=== PATIENT | male | born 1965 | race Asian ===

== ENCOUNTER 2016-10-01 10:38 | Inpatient (IN) | payer MEDICAID, OTHER ==
[~2016-10-01] VITALS: Ht 162.6 cm; Wt 80.5 kg
[2016-10-01] MEDS ORDERED: SERT50TA12 PO (11:27)
[2016-10-01] MEDS ORDERED: LORazepam 2 MG TABLET PO ONE (12:45)
[2016-10-01] MEDS ORDERED: KETOROLAC TROMETHAMINE 60 MG/2 ML VIAL IM ONE (12:45)
[2016-10-01 13:13] LABS: ANION GAP 11 mmol/L (8-16); CARBON DIOXIDE 20 mmol/L (22-29); CHLORIDE 103 mmol/L (98-107); CREATININE 1.38 mg/dL (0.60-1.30); GLOMERULAR FILTR. RATE CALC 54 mL/min (>60); POTASSIUM 4.6 mmol/L (3.5-5.1); SODIUM SERUM 134 mmol/L (136-145); UREA NITROGEN, BLOOD 20 mg/dL (7-18)
[2016-10-01 13:36] LABS: ALANINE AMINOTRANSFERASE 38 U/L (12-78); ALBUMIN 2.9 g/dL (3.4-5.0); ASPARTATE AMINOTRANSFERASE 38 U/L (15-37); BILIRUBIN,TOTAL 4.3 mg/dL (0.1-1.0)
[2016-10-01 13:39] LABS: CREATINE KINASE MB 0.7 ng/mL (0-5); CREATINE KINASE, TOTAL 123 U/L (39-308)
[2016-10-01] MEDS ORDERED: ZOLPIDEM TARTRATE 10 MG TABLET PO PRN (14:45)
[2016-10-01] MEDS ORDERED: LORazepam 2 MG TABLET PO PRN (14:45)
[2016-10-01] MEDS ORDERED: HALOPERIDOL 5 MG TABLET PO PRN (14:45)
[2016-10-01 14:49] LABS: BASOPHILS # (AUTO) 0.02 K/uL (0.00-0.20); BASOPHILS % (AUTO) 0.9 % (0.0-2.0); EOSINOPHILS # (AUTO) 0.07 K/uL (0.00-0.70); EOSINOPHILS % (AUTO) 3.05 % (1.0-6.0); HEMATOCRIT 29.6 % (41-53); HEMOGLOBIN 10.2 g/dL (13.5-17.5); LYMPHOCYTES # (AUTO) 0.7 K/uL (1.0-4.8); LYMPHOCYTES % (AUTO) 29.6 % (22.0-44.0); MEAN CORPUSCULAR HGB CONC 34.4 G/dL (31.0-37.0); MEAN CORPUSCULAR VOLUME 93 fL (80-100); MONOCYTES # (AUTO) 0.2 K/uL (0.1-1.0); NEUTROPHILS # (AUTO) 1.4 K/uL (1.8-7.7); NEUTROPHILS % (AUTO) 58.5 % (40.0-70.0); RED BLOOD CELL COUNT(AUTO) 3.18 MIL/uL (4.50-5.90); WHITE BLOOD COUNT (AUTO) 2.3 K/uL (4.5-11.0)
[2016-10-01 15:18] LABS: PLATELET COUNT (AUTO) 20 K/uL (150-450)
[2016-10-01 17:30] VITALS: BP 125/72
[2016-10-01] MEDS ORDERED: MAG HYDROX/AL HYDROX/SIMETH ES 30 ML SUSPENSION UDCUP PO PRN (18:15)
[2016-10-01] MEDS ORDERED: PNEUMOCOCCAL VACCINE POLYVALENT 0.5 ML VIAL [PPSV23] IM ONE (18:45)
[2016-10-01] MEDS ORDERED: GLUCAGON,HUMAN RECOMBINANT 1 MG VIAL IM PRN ×2 (20:45→22:15)
[2016-10-01] MEDS ORDERED: INSULIN ASPART 100 UNITS/ML SQ PRN ×2 (20:45→22:15)
[2016-10-01 20:52] LABS: GLUCOSE,POINT OF CARE 387 MG/DL (70-110)
[2016-10-01] MEDS ORDERED: INSULIN REGULAR, HUMAN 100 UNITS/ML SQ PRN (22:00)
[2016-10-01 22:02] LABS: GLUCOSE,POINT OF CARE 404 MG/DL (70-110)
[2016-10-01] MEDS: INSULIN ASPART 100 UNITS/ML SQ PRN (22:35)
[2016-10-01 23:17] LABS: GLUCOSE,POINT OF CARE 298 MG/DL (70-110)
[2016-10-01] MEDS: INSULIN DETEMIR 100 UNITS/ML SQ SCH (23:25)
[2016-10-02] VITALS (8 sets, daily range): BP systolic 112–139; BP diastolic 69–91
[2016-10-02 06:16] LABS: GLUCOSE,POINT OF CARE 133 MG/DL (70-110)
[2016-10-02 08:37] LABS: CHOL/HDL RATIO 2.5 (4.2-7.3); MAGNESIUM 1.5 mg/dL (1.80-2.40)
[2016-10-02] MEDS: NICOTINE 21 MG/24 HOUR PATCH TD SCH (08:48)
[2016-10-02] MEDS ORDERED: ACETAMINOPHEN 325 MG TABLET PO PRN (09:30)
[2016-10-02] MEDS ORDERED: IBUPROFEN 600 MG TABLET PO PRN (09:30)
[2016-10-02 11:32] LABS: GLUCOSE,POINT OF CARE 139 MG/DL (70-110)
[2016-10-02] MEDS: PANTOPRAZOLE SODIUM 40 MG DR TABLET PO SCH (12:48)
[2016-10-02] MEDS ORDERED: CYANOCOBALAMIN 1,000 MCG/ML VIAL IM ONE (15:45)
[2016-10-02] MEDS ORDERED: GuaiFENesin/D-METHORPHAN [SUGAR-FREE] 200-20MG/10 ML SYRUP UDCUP PO PRN (15:45)
[2016-10-02] MEDS ORDERED: LOPERAMIDE HCL 2 MG CAPSULE PO PRN (15:45)
[2016-10-02] MEDS ORDERED: HydrOXYzine PAMOATE 50 MG CAPSULE PO PRN (15:45)
[2016-10-02] MEDS: FOLIC ACID 1 MG TABLET PO SCH (16:03)
[2016-10-02] MEDS: THIAMINE HCL 100 MG TABLET PO SCH (16:03)
[2016-10-02] MEDS: MULTIVITAMINS WITH MINERALS, THERAPEUTIC TABLET PO SCH (16:03)
[2016-10-02 16:56] LABS: GLUCOSE,POINT OF CARE 277 MG/DL (70-110)
[2016-10-02] MEDS: INSULIN ASPART 100 UNITS/ML SQ PRN ×2 (17:03→20:45)
[2016-10-02] MEDS: OLANZapine 5 MG TABLET PO SCH (20:33)
[2016-10-02] MEDS: INSULIN DETEMIR 100 UNITS/ML SQ SCH (20:45)
[2016-10-02 20:57] LABS: GLUCOSE,POINT OF CARE 368 MG/DL (70-110)
[2016-10-03] VITALS (7 sets, daily range): BP systolic 110–122; BP diastolic 66–73
[2016-10-03] MEDS: INSULIN ASPART 100 UNITS/ML SQ PRN ×3 (06:43→16:37)
[2016-10-03 06:52] LABS: GLUCOSE,POINT OF CARE 362 MG/DL (70-110)
[2016-10-03] MEDS ORDERED: LORazepam 2 MG TABLET PO PRN (07:00)
[2016-10-03] MEDS: MAGNESIUM OXIDE 400 MG TABLET PO SCH (09:09)
[2016-10-03] MEDS: MULTIVITAMINS WITH MINERALS, THERAPEUTIC TABLET PO SCH (09:09)
[2016-10-03] MEDS: NICOTINE 21 MG/24 HOUR PATCH TD SCH (09:09)
[2016-10-03] MEDS: FOLIC ACID 1 MG TABLET PO SCH (09:09)
[2016-10-03] MEDS: LORazepam 2 MG TABLET PO SCH ×4 (09:10→20:23)
[2016-10-03] MEDS: PANTOPRAZOLE SODIUM 40 MG DR TABLET PO SCH (09:10)
[2016-10-03] MEDS: CHOLECALCIFEROL (VIT D3) 2,000 UNITS TABLET PO SCH (09:10)
[2016-10-03] MEDS: SERTRALINE HCL 50 MG TABLET PO SCH (09:10)
[2016-10-03] MEDS: THIAMINE HCL 100 MG TABLET PO SCH ×2 (09:10→16:18)
[2016-10-03 11:21] LABS: GLUCOSE,POINT OF CARE 313 MG/DL (70-110)
[2016-10-03 16:40] LABS: GLUCOSE COMMENT 1 Received Meds; GLUCOSE,POINT OF CARE 388 MG/DL (70-110)
[2016-10-03 20:21] LABS: GLUCOSE,POINT OF CARE 467 MG/DL (70-110)
[2016-10-03] MEDS: OLANZapine 5 MG TABLET PO SCH (20:23)
[2016-10-03] MEDS ORDERED: INSULIN ASPART 100 UNITS/ML SQ ONE (20:30)
[2016-10-03] MEDS ORDERED: INSULIN DETEMIR 100 UNITS/ML SQ SCH (21:00)
[2016-10-04 04:09] VITALS: BP 122/73
[2016-10-04 06:02] LABS: GLUCOSE,POINT OF CARE 264 MG/DL (70-110)
[2016-10-04 06:09] VITALS: BP 101/66
[2016-10-04] MEDS: INSULIN ASPART 100 UNITS/ML SQ PRN ×4 (07:00→20:59)
[2016-10-04] MEDS: LORazepam 2 MG TABLET PO SCH ×4 (09:00→21:00)
[2016-10-04 09:08] VITALS: BP 117/65
[2016-10-04] MEDS: NICOTINE 21 MG/24 HOUR PATCH TD SCH (09:20)
[2016-10-04] MEDS: PANTOPRAZOLE SODIUM 40 MG DR TABLET PO SCH (09:21)
[2016-10-04] MEDS: THIAMINE HCL 100 MG TABLET PO SCH ×2 (09:21→16:51)
[2016-10-04] MEDS: FOLIC ACID 1 MG TABLET PO SCH (09:21)
[2016-10-04] MEDS: CHOLECALCIFEROL (VIT D3) 2,000 UNITS TABLET PO SCH (09:21)
[2016-10-04] MEDS: SERTRALINE HCL 50 MG TABLET PO SCH (09:21)
[2016-10-04] MEDS: MULTIVITAMINS WITH MINERALS, THERAPEUTIC TABLET PO SCH (09:21)
[2016-10-04] MEDS: MAGNESIUM OXIDE 400 MG TABLET PO SCH (09:21)
[2016-10-04 11:17] LABS: GLUCOSE,POINT OF CARE 289 MG/DL (70-110)
[2016-10-04 13:06] LABS: HEPATITIS Bs ANTIGEN SCREEN P Negative (Negative); HEPATITIS C AB SCREEN >11.0 s/co ratio (0.0-0.9)
[2016-10-04 17:12] LABS: GLUCOSE,POINT OF CARE 389 MG/DL (70-110)
[2016-10-04 17:31] VITALS: BP 125/75
[2016-10-04 17:32] VITALS: BP 125/75
[2016-10-04] MEDS: OLANZapine 5 MG TABLET PO SCH (21:00)
[2016-10-04] MEDS ORDERED: INSULIN DETEMIR 100 UNITS/ML SQ SCH (21:00)
[2016-10-04 21:17] LABS: GLUCOSE,POINT OF CARE 360 MG/DL (70-110)
[2016-10-05 01:15] VITALS: BP 142/66
[2016-10-05 01:30] VITALS: BP 127/73
[2016-10-05 01:45] VITALS: BP 125/72
[2016-10-05 02:00] VITALS: BP 142/66
[2016-10-05 02:15] VITALS: BP 142/78
[2016-10-05 02:45] VITALS: BP 120/74
[2016-10-05 03:27] LABS: GLUCOSE,POINT OF CARE 237 MG/DL (70-110)
[2016-10-05] MEDS ORDERED: LORA1TAB3 PO (04:47)
[2016-10-05] MEDS ORDERED: SERT50TA12 PO (04:47)
[2016-10-05] MEDS ORDERED: PANT40TA25 PO (04:47)
[2016-10-05] MEDS ORDERED: INSU100V12 SD (04:47)
[2016-10-05] MEDS ORDERED: MAGOX PO (04:47)
[2016-10-05] MEDS ORDERED: CHOL200016 PO (04:47)
[2016-10-05] MEDS ORDERED: OLAN5TAB2 PO (04:47)
[2016-10-05] MEDS ORDERED: LORazepam 1 MG TABLET PO PRN (07:00)
[2016-10-05] MEDS ORDERED: LORazepam 1 MG TABLET PO SCH (09:00)
[2016-10-06] MEDS ORDERED: LORazepam 1 MG TABLET PO PRN (07:00)
== END 2016-10-05 15:15 | disposition short-term general hospital (02) | DRG 750 ==
LOC: EEVIPCON 10:41 → EMS 10:41 → B2S 15:03
PROC: HZ2ZZZZ Detoxification Services for Substance Abuse Treatment (ICD-10-PCS; principal; 2016-10-02)
DX: F25.1 Schizoaffective disorder, depressive type (principal); G20 Parkinson's disease; R45.851 Suicidal ideations; E11.65 Type 2 diabetes mellitus with hyperglycemia; K74.60 Unspecified cirrhosis of liver; E55.9 Vitamin D deficiency, unspecified; E83.42 Hypomagnesemia; D64.9 Anemia, unspecified; B19.20 Unspecified viral hepatitis C without hepatic coma; F10.10 Alcohol abuse, uncomplicated; R26.9 Unspecified abnormalities of gait and mobility; Y90.0 Blood alcohol level of less than 20 mg/100 ml
CPT/HCPCS: 80074; 82306; 82607; 82746; 82962; 83036; 83735; 84439; 84443; 90471; 96372; 99285; G0480; J1815; J1885; J3420

== ENCOUNTER 2016-10-05 04:04 | Inpatient (IN) | payer MEDICAID, OTHER ==
[~2016-10-05] VITALS: Ht 162.6 cm; Wt 76.1 kg
[~2016-10-05 04:04] MED LIST: SERT50TA12 PO
[2016-10-05] MEDS ORDERED: MAGOX PO (04:47)
[2016-10-05] MEDS ORDERED: CHOL200016 PO (04:47)
[2016-10-05] MEDS ORDERED: PANT40TA25 PO (04:47)
[2016-10-05] MEDS ORDERED: SERT50TA12 PO (04:47)
[2016-10-05] MEDS ORDERED: INSU100V12 SD (04:47)
[2016-10-05] MEDS ORDERED: LORA1TAB3 PO (04:47)
[2016-10-05] MEDS ORDERED: OLAN5TAB2 PO (04:47)
[2016-10-05 05:26] LABS: BASOPHILS % (AUTO) 0.2 % (0.0-2.0); EOSINOPHILS % (AUTO) 2.7 % (1.0-6.0); HEMATOCRIT 31.1 % (41-53); HEMOGLOBIN 10.4 g/dL (13.5-17.5); LYMPHOCYTES # (AUTO) 0.7 K/uL (1.0-4.8); LYMPHOCYTES % (AUTO) 20.1 % (22.0-44.0); MEAN CORPUSCULAR HEMOGLOBIN 31.8 pg (26.0-34.0); MEAN CORPUSCULAR HGB CONC 33.5 G/dL (31.0-37.0); MEAN CORPUSCULAR VOLUME 95 fL (80-100); MONOCYTES # (AUTO) 0.2 K/uL (0.1-1.0); MONOCYTES % (AUTO) 4.8 % (2.0-9.0); NEUTROPHILS # (AUTO) 2.4 K/uL (1.8-7.7); NEUTROPHILS % (AUTO) 72.2 % (40.0-70.0); PLATELET COUNT (AUTO) 20 K/uL (150-450); RED BLOOD CELL COUNT(AUTO) 3.28 MIL/uL (4.50-5.90); RED CELL DISTRIBUTION WIDTH 14.3 % (11.5-14.5); WHITE BLOOD COUNT (AUTO) 3.3 K/uL (4.5-11.0)
[2016-10-05 05:32] LABS: ANION GAP 8 mmol/L (8-16); CALCIUM, TOTAL 8.3 mg/dL (8.8-10.5); CARBON DIOXIDE 26 mmol/L (22-29); CHLORIDE 110 mmol/L (98-107); CREATININE 1.39 mg/dL (0.60-1.30); GLOMERULAR FILTR. RATE CALC 54 mL/min (>60); POTASSIUM 4.1 mmol/L (3.5-5.1); SODIUM SERUM 144 mmol/L (136-145); UREA NITROGEN, BLOOD 18 mg/dL (7-18)
[2016-10-05 05:39] LABS: AMMONIA 302 umol/L (11-32)
[2016-10-05 05:42] LABS: TROPONIN I < 0.02 ng/mL (0.00-0.05)
[2016-10-05] MEDS ORDERED: MAGNESIUM SULFATE 2 GM, MVI, ADULT NO.1 WITH VIT K 10 ML, THIAMINE HCL 100 MG, FOLIC AC... IV ONE ×5 (05:45)
[2016-10-05] MEDS ORDERED: LACTULOSE 20 GM/30 ML SOLUTION UDCUP PO ONE (05:45)
[2016-10-05] MEDS ORDERED: 0.9% SODIUM CHLORIDE 10 ML SYRINGE IVP PRN (05:45)
[2016-10-05] MEDS ORDERED: ONDANSETRON HCL 4 MG/2 ML VIAL IVP PRN (05:45)
[2016-10-05 05:46] LABS: B-TYPE NATRIURETIC PEPTIDE 27 pg/mL (0-100)
[2016-10-05 05:57] LABS: ALANINE AMINOTRANSFERASE 45 U/L (12-78); ALBUMIN 2.5 g/dL (3.4-5.0); ASPARTATE AMINOTRANSFERASE 33 U/L (15-37); BILIRUBIN,TOTAL 2.6 mg/dL (0.1-1.0); CREATINE KINASE MB 0.6 ng/mL (0-5); CREATINE KINASE, TOTAL 93 U/L (39-308); TOTAL PROTEIN, SERUM 5.7 g/dL (6.4-8.2)
[2016-10-05 09:47] LABS: CALCIUM, TOTAL 8.2 mg/dL (8.8-10.5); CREATININE 1.35 mg/dL (0.60-1.30); POTASSIUM 4.4 mmol/L (3.5-5.1)
[2016-10-05 09:53] LABS: ALBUMIN 2.6 g/dL (3.4-5.0); BILIRUBIN,TOTAL 2.7 mg/dL (0.1-1.0); TOTAL PROTEIN, SERUM 5.8 g/dL (6.4-8.2)
[2016-10-05 15:03] LABS: APPEARANCE,URINE CLEAR (CLEAR); GLUCOSE, URINE (UA) 100 mg/dL (NEGATIVE); KETONES,URINE NEGATIVE (NEGATIVE); LEUKOCYTE ESTERASE ,URINE NEGATIVE (NEGATIVE); OCCULT BLOOD,URINE MODERATE (NEGATIVE); PROTEIN,URINE NEGATIVE (NEGATIVE)
[2016-10-05 15:04] LABS: ADD UA MICROSCOPIC YES
[2016-10-05 15:07] LABS: WBC,URINE 0-2 /HPF (0-5)
[2016-10-05 15:17] LABS: GLUCOSE,POINT OF CARE 217 MG/DL (70-110)
[2016-10-05 15:26] LABS: CALCIUM, TOTAL 8.2 mg/dL (8.8-10.5); CREATININE 1.28 mg/dL (0.60-1.30)
[2016-10-05 15:31] LABS: ALBUMIN 2.7 g/dL (3.4-5.0); BILIRUBIN,TOTAL 3.1 mg/dL (0.1-1.0); TOTAL PROTEIN, SERUM 5.9 g/dL (6.4-8.2)
[2016-10-05 20:22] VITALS: BP 127/78
[2016-10-05] MEDS ORDERED: -PHARMACY VACCINE NOTE- MISC ONE ×2 (22:30)
[2016-10-05 23:26] VITALS: BP 119/69
[2016-10-06] MEDS: HYDROCODONE/ACETAMINOPHEN 5-325 MG TABLET PO PRN ×2 (02:40→15:24)
[2016-10-06 04:36] VITALS: BP 122/72
[2016-10-06 07:31] VITALS: BP 109/61
[2016-10-06 07:38] LABS: BASOPHILS % (AUTO) 0.2 % (0.0-2.0); EOSINOPHILS % (AUTO) 3.7 % (1.0-6.0); HEMATOCRIT 28.4 % (41-53); HEMOGLOBIN 9.4 g/dL (13.5-17.5); LYMPHOCYTES # (AUTO) 0.5 K/uL (1.0-4.8); LYMPHOCYTES % (AUTO) 24.4 % (22.0-44.0); MEAN CORPUSCULAR HEMOGLOBIN 31.7 pg (26.0-34.0); MEAN CORPUSCULAR HGB CONC 33.2 G/dL (31.0-37.0); MEAN CORPUSCULAR VOLUME 96 fL (80-100); MONOCYTES # (AUTO) 0.1 K/uL (0.1-1.0); NEUTROPHILS # (AUTO) 1.4 K/uL (1.8-7.7); NEUTROPHILS % (AUTO) 65.7 % (40.0-70.0); PLATELET COUNT (AUTO) 20 K/uL (150-450); RED BLOOD CELL COUNT(AUTO) 2.97 MIL/uL (4.50-5.90); RED CELL DISTRIBUTION WIDTH 14.7 % (11.5-14.5); WHITE BLOOD COUNT (AUTO) 2.1 K/uL (4.5-11.0)
[2016-10-06 07:49] LABS: CALCIUM, TOTAL 7.7 mg/dL (8.8-10.5); CREATININE 1.27 mg/dL (0.60-1.30)
[2016-10-06] MEDS: PANTOPRAZOLE SODIUM 40 MG DR TABLET PO SCH (07:59)
[2016-10-06] MEDS: LORazepam 1 MG TABLET PO SCH ×4 (07:59→20:01)
[2016-10-06] MEDS: MAGNESIUM OXIDE 400 MG TABLET PO SCH (07:59)
[2016-10-06 11:06] VITALS: BP 124/57
[2016-10-06 15:02] VITALS: BP 127/69
[2016-10-06 19:32] VITALS: BP 139/83
[2016-10-06 20:32] LABS: GLUCOSE COMMENT 1 Received Meds; GLUCOSE,POINT OF CARE 316 MG/DL (70-110)
[2016-10-06] MEDS ORDERED: INSULIN DETEMIR 100 UNITS/ML SQ SCH (21:00)
[2016-10-06] MEDS: LACTULOSE 20 GM/30 ML SOLUTION UDCUP PO SCH (22:42)
[2016-10-06 23:33] VITALS: BP 156/79
[2016-10-07] MEDS ORDERED: INSULIN REGULAR, HUMAN 100 UNITS/ML SQ PRN (00:30)
[2016-10-07] MEDS ORDERED: DEXTROSE 50%-WATER 25 GM/50 ML SYRINGE IVP PRN ×2 (00:30→00:45)
[2016-10-07 04:57] VITALS: BP 142/72
[2016-10-07] MEDS: LACTULOSE 20 GM/30 ML SOLUTION UDCUP PO SCH ×3 (05:57→17:52)
[2016-10-07] MEDS: INSULIN ASPART 100 UNITS/ML SQ PRN ×4 (06:00→20:24)
[2016-10-07] MEDS ORDERED: LORazepam 2 MG/ML VIAL IVP PRN (06:30)
[2016-10-07] MEDS ORDERED: LORazepam 2 MG/ML VIAL ONE (06:36)
[2016-10-07] MEDS: MAGNESIUM OXIDE 400 MG TABLET PO SCH (07:55)
[2016-10-07] MEDS: PANTOPRAZOLE SODIUM 40 MG DR TABLET PO SCH (07:55)
[2016-10-07] MEDS: LORazepam 1 MG TABLET PO SCH ×6 (07:55→21:00)
[2016-10-07] MEDS: HYDROCODONE/ACETAMINOPHEN 5-325 MG TABLET PO PRN (07:55)
[2016-10-07 08:03] VITALS: BP 124/70
[2016-10-07 11:04] LABS: GLUCOSE COMMENT 1 Received Meds; GLUCOSE,POINT OF CARE 250 MG/DL (70-110)
[2016-10-07 11:33] VITALS: BP 139/62
[2016-10-07 13:17] LABS: GLUCOSE COMMENT 1 Received Meds; GLUCOSE,POINT OF CARE 207 MG/DL (70-110)
[2016-10-07 15:54] VITALS: BP 143/82
[2016-10-07] MEDS ORDERED: LACTULOSE 20 GM/30 ML SOLUTION UDCUP PO PRN ×2 (17:15)
[2016-10-07 17:37] LABS: GLUCOSE COMMENT 1 Received Meds; GLUCOSE,POINT OF CARE 221 MG/DL (70-110)
[2016-10-07 19:44] VITALS: BP 118/73
[2016-10-07] MEDS: IBUPROFEN 600 MG TABLET PO PRN (20:20)
[2016-10-07] MEDS: INSULIN DETEMIR 100 UNITS/ML SQ SCH (20:23)
[2016-10-07 20:57] LABS: GLUCOSE COMMENT 1 Received Meds; GLUCOSE,POINT OF CARE 244 MG/DL (70-110)
[2016-10-08 00:09] VITALS: BP 112/54
[2016-10-08] MEDS: LACTULOSE 20 GM/30 ML SOLUTION UDCUP PO SCH ×5 (00:19→23:36)
[2016-10-08 05:20] VITALS: BP 115/84
[2016-10-08] MEDS: INSULIN ASPART 100 UNITS/ML SQ PRN ×4 (05:54→20:20)
[2016-10-08 06:43] LABS: BASOPHILS % (AUTO) 0.2 % (0.0-2.0); EOSINOPHILS % (AUTO) 2.9 % (1.0-6.0); HEMATOCRIT 28.6 % (41-53); HEMOGLOBIN 9.6 g/dL (13.5-17.5); LYMPHOCYTES # (AUTO) 0.6 K/uL (1.0-4.8); LYMPHOCYTES % (AUTO) 18.9 % (22.0-44.0); MEAN CORPUSCULAR HEMOGLOBIN 32.2 pg (26.0-34.0); MEAN CORPUSCULAR HGB CONC 33.7 G/dL (31.0-37.0); MEAN CORPUSCULAR VOLUME 96 fL (80-100); MONOCYTES # (AUTO) 0.2 K/uL (0.1-1.0); MONOCYTES % (AUTO) 6.6 % (2.0-9.0); NEUTROPHILS # (AUTO) 2.3 K/uL (1.8-7.7); NEUTROPHILS % (AUTO) 71.4 % (40.0-70.0); PLATELET COUNT (AUTO) 25 K/uL (150-450); RED BLOOD CELL COUNT(AUTO) 2.99 MIL/uL (4.50-5.90); RED CELL DISTRIBUTION WIDTH 14.7 % (11.5-14.5); WHITE BLOOD COUNT (AUTO) 3.3 K/uL (4.5-11.0)
[2016-10-08 06:52] LABS: HEMOGLOBIN A1C 9.7 % (4.5-6.2)
[2016-10-08 07:10] LABS: ALANINE AMINOTRANSFERASE 33 U/L (12-78); ALBUMIN 2.5 g/dL (3.4-5.0); ANION GAP 6 mmol/L (8-16); ASPARTATE AMINOTRANSFERASE 21 U/L (15-37); BILIRUBIN,TOTAL 3.2 mg/dL (0.1-1.0); CALCIUM, TOTAL 8.2 mg/dL (8.8-10.5); CARBON DIOXIDE 26 mmol/L (22-29); CHLORIDE 108 mmol/L (98-107); CREATININE 1.24 mg/dL (0.60-1.30); GLOMERULAR FILTR. RATE CALC > 60 mL/min (>60); POTASSIUM 3.5 mmol/L (3.5-5.1); SODIUM SERUM 140 mmol/L (136-145); THYROID STIMULATING HORMONE 1.28 uIU/mL (0.36-3.74); TOTAL PROTEIN, SERUM 5.4 g/dL (6.4-8.2); UREA NITROGEN, BLOOD 18 mg/dL (7-18)
[2016-10-08 07:49] VITALS: BP 112/69
[2016-10-08] MEDS: MAGNESIUM OXIDE 400 MG TABLET PO SCH (08:03)
[2016-10-08] MEDS: LORazepam 1 MG TABLET PO SCH ×4 (08:03→20:09)
[2016-10-08] MEDS: PANTOPRAZOLE SODIUM 40 MG DR TABLET PO SCH (08:03)
[2016-10-08 11:23] LABS: GLUCOSE COMMENT 1 Received Meds; GLUCOSE,POINT OF CARE 196 MG/DL (70-110)
[2016-10-08 11:23] LABS: GLUCOSE,POINT OF CARE 347 MG/DL (70-110)
[2016-10-08] MEDS: IBUPROFEN 600 MG TABLET PO PRN ×3 (11:36→20:09)
[2016-10-08 12:32] VITALS: BP 116/74
[2016-10-08 15:58] VITALS: BP 126/73
[2016-10-08 18:12] LABS: GLUCOSE COMMENT 1 Received Meds; GLUCOSE,POINT OF CARE 249 MG/DL (70-110)
[2016-10-08 19:47] VITALS: BP 135/71
[2016-10-08] MEDS: INSULIN DETEMIR 100 UNITS/ML SQ SCH (20:20)
[2016-10-09] VITALS (7 sets, daily range): BP systolic 98–130; BP diastolic 51–73
[2016-10-09 05:01] LABS: GLUCOSE COMMENT 1 Received Meds; GLUCOSE,POINT OF CARE 174 MG/DL (70-110)
[2016-10-09] MEDS: LACTULOSE 20 GM/30 ML SOLUTION UDCUP PO SCH ×3 (05:13→20:44)
[2016-10-09] MEDS: INSULIN ASPART 100 UNITS/ML SQ PRN ×4 (05:21→22:03)
[2016-10-09 07:42] LABS: GLUCOSE COMMENT 1 Received Meds; GLUCOSE,POINT OF CARE 154 MG/DL (70-110)
[2016-10-09] MEDS: PANTOPRAZOLE SODIUM 40 MG DR TABLET PO SCH (07:55)
[2016-10-09] MEDS: MAGNESIUM OXIDE 400 MG TABLET PO SCH (07:55)
[2016-10-09] MEDS: LORazepam 1 MG TABLET PO SCH ×4 (07:55→20:43)
[2016-10-09 13:07] LABS: GLUCOSE,POINT OF CARE 266 MG/DL (70-110)
[2016-10-09 17:37] LABS: GLUCOSE,POINT OF CARE 280 MG/DL (70-110)
[2016-10-09] MEDS: IBUPROFEN 600 MG TABLET PO PRN (20:43)
[2016-10-09] MEDS: INSULIN DETEMIR 100 UNITS/ML SQ SCH (22:01)
[2016-10-10] MEDS: LACTULOSE 20 GM/30 ML SOLUTION UDCUP PO SCH ×4 (02:21→17:26)
[2016-10-10] MEDS: IBUPROFEN 600 MG TABLET PO PRN (02:26)
[2016-10-10 04:22] LABS: GLUCOSE COMMENT 1 Received Meds; GLUCOSE,POINT OF CARE 333 MG/DL (70-110)
[2016-10-10 05:12] VITALS: BP 113/60
[2016-10-10] MEDS: INSULIN ASPART 100 UNITS/ML SQ PRN ×3 (06:40→17:30)
[2016-10-10 07:11] LABS: BASOPHILS % (AUTO) 0.4 % (0.0-2.0); EOSINOPHILS % (AUTO) 3.6 % (1.0-6.0); HEMATOCRIT 27.8 % (41-53); HEMOGLOBIN 9.2 g/dL (13.5-17.5); LYMPHOCYTES # (AUTO) 0.6 K/uL (1.0-4.8); LYMPHOCYTES % (AUTO) 26.1 % (22.0-44.0); MEAN CORPUSCULAR HEMOGLOBIN 31.3 pg (26.0-34.0); MEAN CORPUSCULAR HGB CONC 33.1 G/dL (31.0-37.0); MEAN CORPUSCULAR VOLUME 95 fL (80-100); MONOCYTES # (AUTO) 0.2 K/uL (0.1-1.0); MONOCYTES % (AUTO) 7.3 % (2.0-9.0); NEUTROPHILS # (AUTO) 1.5 K/uL (1.8-7.7); NEUTROPHILS % (AUTO) 62.6 % (40.0-70.0); PLATELET COUNT (AUTO) 30 K/uL (150-450); RED BLOOD CELL COUNT(AUTO) 2.94 MIL/uL (4.50-5.90); RED CELL DISTRIBUTION WIDTH 15.4 % (11.5-14.5); WHITE BLOOD COUNT (AUTO) 2.5 K/uL (4.5-11.0)
[2016-10-10 07:22] LABS: GLUCOSE COMMENT 1 Received Meds; GLUCOSE,POINT OF CARE 290 MG/DL (70-110)
[2016-10-10 07:40] LABS: ALBUMIN 2.3 g/dL (3.4-5.0); BILIRUBIN,TOTAL 1.8 mg/dL (0.1-1.0); CALCIUM, TOTAL 7.6 mg/dL (8.8-10.5); CREATININE 1.33 mg/dL (0.60-1.30); POTASSIUM 4.3 mmol/L (3.5-5.1); TOTAL PROTEIN, SERUM 5.3 g/dL (6.4-8.2)
[2016-10-10 08:00] VITALS: BP 116/49
[2016-10-10] MEDS: MAGNESIUM OXIDE 400 MG TABLET PO SCH (08:45)
[2016-10-10] MEDS: LORazepam 1 MG TABLET PO SCH ×4 (08:45→20:25)
[2016-10-10] MEDS: PANTOPRAZOLE SODIUM 40 MG DR TABLET PO SCH (08:46)
[2016-10-10 11:32] LABS: GLUCOSE,POINT OF CARE 191 MG/DL (70-110)
[2016-10-10 12:00] VITALS: BP 107/60
[2016-10-10 16:29] VITALS: BP 121/71
[2016-10-10 16:57] LABS: GLUCOSE,POINT OF CARE 262 MG/DL (70-110)
[2016-10-10 19:21] VITALS: BP 128/74
[2016-10-10] MEDS: INSULIN DETEMIR 100 UNITS/ML SQ SCH (20:31)
[2016-10-10 20:47] LABS: GLUCOSE,POINT OF CARE 242 MG/DL (70-110)
[2016-10-10 23:30] VITALS: BP 118/68
[2016-10-11] MEDS: LACTULOSE 20 GM/30 ML SOLUTION UDCUP PO SCH ×5 (00:01→23:57)
[2016-10-11 03:45] VITALS: BP 125/51
[2016-10-11] MEDS: INSULIN ASPART 100 UNITS/ML SQ PRN ×4 (05:20→21:22)
[2016-10-11 06:57] LABS: GLUCOSE,POINT OF CARE 167 MG/DL (70-110)
[2016-10-11 07:49] VITALS: BP 102/65
[2016-10-11] MEDS: MAGNESIUM OXIDE 400 MG TABLET PO SCH (07:58)
[2016-10-11] MEDS: PANTOPRAZOLE SODIUM 40 MG DR TABLET PO SCH (07:58)
[2016-10-11] MEDS: LORazepam 1 MG TABLET PO SCH ×4 (09:00→20:08)
[2016-10-11 11:07] LABS: ALANINE AMINOTRANSFERASE 34 U/L (12-78); ALBUMIN 2.4 g/dL (3.4-5.0); ANION GAP 9 mmol/L (8-16); ASPARTATE AMINOTRANSFERASE 22 U/L (15-37); BILIRUBIN,TOTAL 1.7 mg/dL (0.1-1.0); CALCIUM, TOTAL 7.7 mg/dL (8.8-10.5); CARBON DIOXIDE 21 mmol/L (22-29); CHLORIDE 109 mmol/L (98-107); CREATININE 1.25 mg/dL (0.60-1.30); GLOMERULAR FILTR. RATE CALC > 60 mL/min (>60); POTASSIUM 4.2 mmol/L (3.5-5.1); SODIUM SERUM 139 mmol/L (136-145); TOTAL PROTEIN, SERUM 5.4 g/dL (6.4-8.2); UREA NITROGEN, BLOOD 22 mg/dL (7-18)
[2016-10-11 11:13] VITALS: BP 101/67
[2016-10-11 11:58] LABS: GLUCOSE COMMENT 1 Received Meds; GLUCOSE,POINT OF CARE 190 MG/DL (70-110)
[2016-10-11 15:18] VITALS: BP 108/62
[2016-10-11 17:46] LABS: GLUCOSE COMMENT 1 Received Meds; GLUCOSE,POINT OF CARE 293 MG/DL (70-110)
[2016-10-11 19:34] VITALS: BP 122/70
[2016-10-11] MEDS: IBUPROFEN 600 MG TABLET PO PRN (20:08)
[2016-10-11] MEDS: INSULIN DETEMIR 100 UNITS/ML SQ SCH (21:21)
[2016-10-11 23:59] VITALS: BP 115/59
[2016-10-12 05:07] VITALS: BP 112/64
[2016-10-12 05:22] LABS: GLUCOSE COMMENT 1 Received Meds; GLUCOSE,POINT OF CARE 358 MG/DL (70-110)
[2016-10-12] MEDS: LACTULOSE 20 GM/30 ML SOLUTION UDCUP PO SCH ×3 (05:29→17:51)
[2016-10-12] MEDS: INSULIN ASPART 100 UNITS/ML SQ PRN ×4 (05:42→20:52)
[2016-10-12 06:16] LABS: ANION GAP 8 mmol/L (8-16); CALCIUM, TOTAL 7.9 mg/dL (8.8-10.5); CARBON DIOXIDE 21 mmol/L (22-29); CHLORIDE 110 mmol/L (98-107); CREATININE 1.25 mg/dL (0.60-1.30); GLOMERULAR FILTR. RATE CALC > 60 mL/min (>60); POTASSIUM 4.2 mmol/L (3.5-5.1); SODIUM SERUM 139 mmol/L (136-145); UREA NITROGEN, BLOOD 23 mg/dL (7-18)
[2016-10-12 07:45] VITALS: BP 109/60
[2016-10-12] MEDS: PANTOPRAZOLE SODIUM 40 MG DR TABLET PO SCH (08:51)
[2016-10-12] MEDS: MAGNESIUM OXIDE 400 MG TABLET PO SCH (08:51)
[2016-10-12] MEDS: LORazepam 1 MG TABLET PO SCH ×4 (09:00→20:45)
[2016-10-12 11:52] VITALS: BP 125/74
[2016-10-12 14:07] LABS: GLUCOSE,POINT OF CARE 215 MG/DL (70-110)
[2016-10-12 14:07] LABS: GLUCOSE COMMENT 1 Received Meds; GLUCOSE,POINT OF CARE 186 MG/DL (70-110)
[2016-10-12 16:31] VITALS: BP 130/75
[2016-10-12 18:42] LABS: GLUCOSE,POINT OF CARE 219 MG/DL (70-110)
[2016-10-12 20:46] VITALS: BP 129/61
[2016-10-12] MEDS: INSULIN DETEMIR 100 UNITS/ML SQ SCH (20:50)
[2016-10-13] VITALS (7 sets, daily range): BP systolic 100–124; BP diastolic 60–80
[2016-10-13] MEDS: LACTULOSE 20 GM/30 ML SOLUTION UDCUP PO SCH ×4 (00:48→17:38)
[2016-10-13 05:47] LABS: GLUCOSE COMMENT 1 Received Meds; GLUCOSE,POINT OF CARE 359 MG/DL (70-110)
[2016-10-13] MEDS: INSULIN ASPART 100 UNITS/ML SQ PRN ×4 (06:31→20:38)
[2016-10-13 07:37] LABS: GLUCOSE COMMENT 1 Received Meds; GLUCOSE,POINT OF CARE 230 MG/DL (70-110)
[2016-10-13] MEDS: PANTOPRAZOLE SODIUM 40 MG DR TABLET PO SCH (08:01)
[2016-10-13] MEDS: MAGNESIUM OXIDE 400 MG TABLET PO SCH (08:01)
[2016-10-13] MEDS: LORazepam 1 MG TABLET PO SCH ×4 (09:00→21:00)
[2016-10-13 12:47] LABS: GLUCOSE,POINT OF CARE 211 MG/DL (70-110)
[2016-10-13] MEDS ORDERED: INSU100V12 SQ (16:16)
[2016-10-13] MEDS ORDERED: LACT30L PO (16:18)
[2016-10-13 17:51] LABS: GLUCOSE,POINT OF CARE 292 MG/DL (70-110)
[2016-10-13] MEDS: IBUPROFEN 600 MG TABLET PO PRN (20:38)
[2016-10-13] MEDS: INSULIN DETEMIR 100 UNITS/ML SQ SCH (20:39)
[2016-10-13 23:07] LABS: GLUCOSE,POINT OF CARE 290 MG/DL (70-110)
[2016-10-14] MEDS: LACTULOSE 20 GM/30 ML SOLUTION UDCUP PO SCH ×2 (00:06→05:59)
[2016-10-14 04:00] VITALS: BP 108/70
[2016-10-14] MEDS: INSULIN ASPART 100 UNITS/ML SQ PRN (05:59)
[2016-10-14 06:23] LABS: GLUCOSE,POINT OF CARE 190 MG/DL (70-110)
[2016-10-14 07:26] VITALS: BP 100/65
[2016-10-14] MEDS: PANTOPRAZOLE SODIUM 40 MG DR TABLET PO SCH (07:55)
[2016-10-14] MEDS: LORazepam 1 MG TABLET PO SCH (07:55)
[2016-10-14] MEDS: MAGNESIUM OXIDE 400 MG TABLET PO SCH (07:56)
== END 2016-10-14 09:00 | disposition home or self-care (01) | DRG 279 ==
LOC: EMS 04:06 → 6N 18:17
PROVIDERS: ADMIT Internal Medicine Geriatric Medicine; ATTEND Internal Medicine Geriatric Medicine
DX: K72.90 Hepatic failure, unspecified without coma (principal); E43 Unspecified severe protein-calorie malnutrition; N17.9 Acute kidney failure, unspecified; D61.818 Other pancytopenia; E11.22 Type 2 diabetes mellitus with diabetic chronic kidney disease; K74.60 Unspecified cirrhosis of liver; S80.01XA Contusion of right knee, initial encounter; S40.812A Abrasion of left upper arm, initial encounter; B19.20 Unspecified viral hepatitis C without hepatic coma; R26.9 Unspecified abnormalities of gait and mobility; R25.1 Tremor, unspecified; F25.9 Schizoaffective disorder, unspecified; E11.65 Type 2 diabetes mellitus with hyperglycemia; N18.9 Chronic kidney disease, unspecified; F32.9 Major depressive disorder, single episode, unspecified; F10.10 Alcohol abuse, uncomplicated; E55.9 Vitamin D deficiency, unspecified; Z68.28 Body mass index [BMI] 28.0-28.9, adult; Z78.1 Physical restraint status; Z79.899 Other long term (current) drug therapy; Z79.4 Long term (current) use of insulin; Z59.0 Homelessness; W19.XXXA Unspecified fall, initial encounter; Y93.89 Activity, other specified; Y92.89 Other specified places as the place of occurrence of the external cause; Y99.8 Other external cause status
CPT/HCPCS: 70450; 82105; 82306; 82607; 82746; 82962; 83036; 83735; 84439; 84443; 87081; 93005; 96365; 96366; 99285; G0480; J2060; J3411; J3475; J3490; J7030